=== PATIENT | male | born 1935 | race Caucasian/White ===

== ENCOUNTER 2021-01-15 21:10 | Inpatient (IN) | payer OTHER, SELFPAY ==
[~2021-01-15] VITALS: Ht 170.2 cm; Wt 76.9 kg
[2021-01-15 21:45] VITALS: BP_SYST 122
[2021-01-15] MEDS ORDERED: FURO-150 PO (22:08)
[2021-01-15] MEDS ORDERED: RIVA20TA PO (22:08)
[2021-01-15] MEDS ORDERED: TAMS-11 PO (22:08)
[2021-01-15] MEDS ORDERED: FINA5TAB3 PO (22:08)
[2021-01-15] MEDS ORDERED: AMIO200T66 PO (22:08)
[2021-01-15] MEDS ORDERED: PRO40 PO (22:08)
[2021-01-15] MEDS ORDERED: DILT240T11 PO (22:08)
[2021-01-15] MEDS ORDERED: LIP10 PO (22:08)
[2021-01-15] MEDS ORDERED: METO-290 PO (22:08)
[2021-01-16 00:06] LABS: ANION GAP 5 (5-15); CALCIUM 8.8 mg/dL (8.4-11.0); CHLORIDE 92 mmol/L (98-107); CREATININE 1.31 mg/dL (0.55-1.30); GLUCOSE 94 mg/dL (70-99); POTASSIUM 3.7 mmol/L (3.5-5.1); SODIUM SERUM 128 mmol/L (136-145); UREA NITROGEN, BLOOD 27 mg/dL (8-21)
[2021-01-16 00:12] LABS: ALANINE AMINOTRANSFERASE 32 U/L (12-78); ASPARTATE AMINOTRANSFERASE 39 U/L (10-37); TOTAL BILIRUBIN 0.6 mg/dL (0.0-1.0)
[2021-01-16 00:13] LABS: BASOPHILS # (AUTO) 0.1 K/uL (0.0-0.2); BASOPHILS % (AUTO) 1.2 % (0.0-2.0); EOSINOPHILS # (AUTO) 0.1 K/uL (0.0-0.4); EOSINOPHILS % (AUTO) 2.9 % (0.0-4.0); HEMATOCRIT 37.8 % (36-54); HEMOGLOBIN 13.2 g/dL (14.0-18.0); LYMPHOCYTES # (AUTO) 0.3 K/uL (1.0-5.5); LYMPHOCYTES % (AUTO) 7.5 % (20.5-51.5); MEAN CORPUSCULAR HEMOGLOBIN 36 pg (27-31); MEAN CORPUSCULAR HGB CONC 35 % (32-36); MEAN CORPUSCULAR VOLUME 102 fL (79.0-98.0); MONOCYTES # (AUTO) 0.4 K/uL (0.0-1.0); NEUTROPHILS # (AUTO) 3.5 K/uL (1.8-7.7); NEUTROPHILS % (AUTO) 79.4 % (40.0-70.0); PLATELET COUNT (AUTO) 139 K/uL (130-430); RED BLOOD CELL COUNT(AUTO) 3.69 MIL/uL (4.2-6.2); RED CELL DISTRIBUTION WIDTH 16.8 % (9.0-15.0); WHITE BLOOD COUNT (AUTO) 4.5 K/uL (4.8-10.8)
[2021-01-16 00:21] LABS: PROTHROMBIN TIME 10.2 SECS (9.5-12.5)
[2021-01-16] MEDS ORDERED: FUROSEMIDE 40 MG/4 ML VIAL IVP ONE (00:45)
[2021-01-16] MEDS ORDERED: MORPHINE 4 MG INJ. 4 MG/ML VIAL IVP PRN (02:00)
[2021-01-16] MEDS ORDERED: ACETAMINOPHEN 325 MG TABLET PO PRN ×2 (02:00→11:00)
[2021-01-16] MEDS ORDERED: HYDROcodone/ACETAMIN 5-325 MG TAB (NORCO/ VICODIN) PO PRN (02:00)
[2021-01-16 06:22] LABS: BASOPHILS % (AUTO) 0.7 % (0.0-2.0); EOSINOPHILS # (AUTO) 0.2 K/uL (0.0-0.4); EOSINOPHILS % (AUTO) 3.7 % (0.0-4.0); HEMATOCRIT 40.8 % (36-54); HEMOGLOBIN 13.7 g/dL (14.0-18.0); LYMPHOCYTES # (AUTO) 0.3 K/uL (1.0-5.5); LYMPHOCYTES % (AUTO) 5.9 % (20.5-51.5); MEAN CORPUSCULAR HEMOGLOBIN 35 pg (27-31); MEAN CORPUSCULAR HGB CONC 34 % (32-36); MEAN CORPUSCULAR VOLUME 104 fL (79.0-98.0); MONOCYTES # (AUTO) 0.3 K/uL (0.0-1.0); MONOCYTES % (AUTO) 7.3 % (1.7-9.3); NEUTROPHILS # (AUTO) 3.7 K/uL (1.8-7.7); NEUTROPHILS % (AUTO) 82.4 % (40.0-70.0); PLATELET COUNT (AUTO) 117 K/uL (130-430); RED BLOOD CELL COUNT(AUTO) 3.94 MIL/uL (4.2-6.2); RED CELL DISTRIBUTION WIDTH 16.1 % (9.0-15.0); WHITE BLOOD COUNT (AUTO) 4.5 K/uL (4.8-10.8)
[2021-01-16 06:36] LABS: ALANINE AMINOTRANSFERASE 36 U/L (12-78); ALBUMIN 2.9 g/dL (3.4-4.8); ANION GAP 3 (5-15); ASPARTATE AMINOTRANSFERASE 47 U/L (10-37); CALCIUM 8.5 mg/dL (8.4-11.0); CHLORIDE 93 mmol/L (98-107); CREATININE 1.39 mg/dL (0.55-1.30); GLUCOSE 81 mg/dL (70-99); POTASSIUM 3.9 mmol/L (3.5-5.1); SODIUM SERUM 130 mmol/L (136-145); TOTAL BILIRUBIN 0.8 mg/dL (0.0-1.0); UREA NITROGEN, BLOOD 25 mg/dL (8-21)
[2021-01-16] MEDS: DILTIAZEM HCL 240 MG CAP.SR.24H PO SCH (10:03)
[2021-01-16] MEDS: TAMSULOSIN HCL 0.4 MG CAP PO SCH (10:03)
[2021-01-16] MEDS: FUROSEMIDE 20 MG TABLET PO SCH (10:04)
[2021-01-16] MEDS: ATORVASTATIN 10 MG TABLET PO SCH (10:04)
[2021-01-16] MEDS: PANTOPRAZOLE SODIUM 40 MG TAB PO SCH (10:06)
[2021-01-16] MEDS: METOCLOPRAMIDE HCL 10 MG TABLET PO SCH ×3 (10:06→20:53)
[2021-01-16 13:51] LABS: SOURCE/TYPE ,BODY FLUID THORACENTESIS
[2021-01-16 13:52] LABS: BF APPEARANCE UNSPUN HAZY (CLEAR); BODY FLUID COLOR YELLOW (LT YELLOW); BODY FLUID SOURCE/ TYPE THORACENTESIS; BODY FLUID TOTAL VOLUME 2000 mL; EOSINOPHIL, BODY FLUID 0 %; LYMPHOCYTES, BODY FLUID 65 %; MONOCYTES,BODY FLUID 8 %; NEUTROPHIL, BODY FLUID 27 %; RBC, BODY FLUID 2539 /uL; WBC, BODY FLUID 39 /uL
[2021-01-16 20:38] VITALS: BP_SYST 111
[2021-01-16 20:57] LABS: BODY FLUID GLUCOSE 71 mg/dL; BODY FLUID TOTAL PROTEIN 3.7 g/dL
[2021-01-16] MEDS: FINASTERIDE 5 MG TABLET (PROSCAR) PO SCH (20:58)
[2021-01-17 00:35] VITALS: BP_SYST 119
[2021-01-17 06:50] LABS: BASOPHILS % (AUTO) 0.4 % (0.0-2.0); EOSINOPHILS # (AUTO) 0.1 K/uL (0.0-0.4); HEMATOCRIT 41.5 % (36-54); HEMOGLOBIN 14.1 g/dL (14.0-18.0); LYMPHOCYTES # (AUTO) 0.3 K/uL (1.0-5.5); LYMPHOCYTES % (AUTO) 7.1 % (20.5-51.5); MEAN CORPUSCULAR HEMOGLOBIN 35 pg (27-31); MEAN CORPUSCULAR HGB CONC 34 % (32-36); MEAN CORPUSCULAR VOLUME 103 fL (79.0-98.0); MONOCYTES # (AUTO) 0.4 K/uL (0.0-1.0); MONOCYTES % (AUTO) 8.3 % (1.7-9.3); NEUTROPHILS # (AUTO) 3.5 K/uL (1.8-7.7); NEUTROPHILS % (AUTO) 82.2 % (40.0-70.0); PLATELET COUNT (AUTO) 98 K/uL (130-430); RED BLOOD CELL COUNT(AUTO) 4.03 MIL/uL (4.2-6.2); RED CELL DISTRIBUTION WIDTH 16.6 % (9.0-15.0); WHITE BLOOD COUNT (AUTO) 4.3 K/uL (4.8-10.8)
[2021-01-17 07:22] LABS: ALANINE AMINOTRANSFERASE 33 U/L (12-78); ALBUMIN 2.7 g/dL (3.4-4.8); ANION GAP -1 (5-15); ASPARTATE AMINOTRANSFERASE 42 U/L (10-37); CALCIUM 8.7 mg/dL (8.4-11.0); CHLORIDE 96 mmol/L (98-107); CREATININE 1.24 mg/dL (0.55-1.30); GLUCOSE 74 mg/dL (70-99); POTASSIUM 3.9 mmol/L (3.5-5.1); SODIUM SERUM 130 mmol/L (136-145); TOTAL BILIRUBIN 0.7 mg/dL (0.0-1.0); UREA NITROGEN, BLOOD 21 mg/dL (8-21)
[2021-01-17 08:00] VITALS: BP_SYST 124
[2021-01-17] MEDS: ATORVASTATIN 10 MG TABLET PO SCH (09:13)
[2021-01-17] MEDS: PANTOPRAZOLE SODIUM 40 MG TAB PO SCH (09:13)
[2021-01-17] MEDS: DILTIAZEM HCL 240 MG CAP.SR.24H PO SCH (09:13)
[2021-01-17] MEDS: TAMSULOSIN HCL 0.4 MG CAP PO SCH (09:13)
[2021-01-17] MEDS: METOCLOPRAMIDE HCL 10 MG TABLET PO SCH ×3 (09:13→23:38)
[2021-01-17] MEDS: FUROSEMIDE 20 MG TABLET PO SCH (09:13)
[2021-01-17 12:00] VITALS: BP_SYST 122
[2021-01-17 16:00] VITALS: BP_SYST 128
[2021-01-17] MEDS: AMIODARONE HCL 200 MG TABLET PO SCH (17:29)
[2021-01-17 20:00] VITALS: BP_SYST 102
[2021-01-17] MEDS: FINASTERIDE 5 MG TABLET (PROSCAR) PO SCH (23:38)
[2021-01-18 08:00] VITALS: BP_SYST 93
[2021-01-18] MEDS: ATORVASTATIN 10 MG TABLET PO SCH (08:56)
[2021-01-18] MEDS: PANTOPRAZOLE SODIUM 40 MG TAB PO SCH (08:56)
[2021-01-18] MEDS: TAMSULOSIN HCL 0.4 MG CAP PO SCH (08:56)
[2021-01-18] MEDS: METOCLOPRAMIDE HCL 10 MG TABLET PO SCH ×3 (08:56→20:30)
[2021-01-18] MEDS: DILTIAZEM HCL 240 MG CAP.SR.24H PO SCH (08:56)
[2021-01-18] MEDS: FUROSEMIDE 20 MG TABLET PO SCH (09:00)
[2021-01-18 12:00] VITALS: BP_SYST 88
[2021-01-18] MEDS: PIPERACILLIN/TAZO 3.375/DEX-IS 50 ML IV SCH ×2 (13:50→18:29)
[2021-01-18] MEDS ORDERED: CABO20TA PO (14:00)
[2021-01-18 16:00] VITALS: BP_SYST 87
[2021-01-18 20:00] VITALS: BP_SYST 101
[2021-01-18] MEDS: FINASTERIDE 5 MG TABLET (PROSCAR) PO SCH (20:30)
[2021-01-19] MEDS: PIPERACILLIN/TAZO 3.375/DEX-IS 50 ML IV SCH ×5 (00:21→22:07)
[2021-01-19 01:18] VITALS: BP_SYST 92
[2021-01-19 07:52] VITALS: BP_SYST 94
[2021-01-19] MEDS: PANTOPRAZOLE SODIUM 40 MG TAB PO SCH (08:56)
[2021-01-19] MEDS: METOCLOPRAMIDE HCL 10 MG TABLET PO SCH ×3 (08:56→21:53)
[2021-01-19] MEDS: ATORVASTATIN 10 MG TABLET PO SCH (08:57)
[2021-01-19] MEDS: TAMSULOSIN HCL 0.4 MG CAP PO SCH (08:57)
[2021-01-19] MEDS: FUROSEMIDE 20 MG TABLET PO SCH (08:57)
[2021-01-19] MEDS: DILTIAZEM HCL 240 MG CAP.SR.24H PO SCH (08:57)
[2021-01-19] MEDS ORDERED: FUROSEMIDE 20 MG/2 ML VIAL IVP ONE (09:30)
[2021-01-19 12:00] VITALS: BP_SYST 90
[2021-01-19] MEDS ORDERED: CABOZANTINIB S MALATE 20 MG PO SCH (13:00)
[2021-01-19 16:00] VITALS: BP_SYST 106
[2021-01-19] MEDS: AMIODARONE HCL 200 MG TABLET PO SCH (17:19)
[2021-01-19 20:00] VITALS: BP_SYST 105
[2021-01-19] MEDS: FINASTERIDE 5 MG TABLET (PROSCAR) PO SCH (21:53)
[2021-01-19] MEDS: FUROSEMIDE 20 MG/2 ML VIAL IVP SCH (22:07)
[2021-01-20] VITALS: BP_SYST 102
[2021-01-20] MEDS: PIPERACILLIN/TAZO 3.375/DEX-IS 50 ML IV SCH ×4 (05:23→23:50)
[2021-01-20] MEDS: CABOZANTINIB 20 MG PO SCH (06:36)
[2021-01-20 07:45] VITALS: BP_SYST 96
[2021-01-20] MEDS: TAMSULOSIN HCL 0.4 MG CAP PO SCH (07:59)
[2021-01-20] MEDS: ATORVASTATIN 10 MG TABLET PO SCH (07:59)
[2021-01-20] MEDS: METOCLOPRAMIDE HCL 10 MG TABLET PO SCH ×3 (07:59→20:50)
[2021-01-20] MEDS: PANTOPRAZOLE SODIUM 40 MG TAB PO SCH (07:59)
[2021-01-20] MEDS: DILTIAZEM HCL 240 MG CAP.SR.24H PO SCH (08:08)
[2021-01-20] MEDS: FUROSEMIDE 20 MG/2 ML VIAL IVP SCH (08:09)
[2021-01-20 11:26] VITALS: BP_SYST 116
[2021-01-20 15:25] VITALS: BP_SYST 106
[2021-01-20 20:00] VITALS: BP_SYST 113
[2021-01-20] MEDS: FINASTERIDE 5 MG TABLET (PROSCAR) PO SCH (20:50)
[2021-01-21] VITALS: BP_SYST 102
[2021-01-21] MEDS: PIPERACILLIN/TAZO 3.375/DEX-IS 50 ML IV SCH ×2 (05:49→10:54)
[2021-01-21] MEDS: CABOZANTINIB 20 MG PO SCH (06:44)
[2021-01-21 08:00] VITALS: BP_SYST 95
[2021-01-21 08:12] LABS: BASOPHILS % (AUTO) 0.3 % (0.0-2.0); EOSINOPHILS # (AUTO) 0.1 K/uL (0.0-0.4); EOSINOPHILS % (AUTO) 1.8 % (0.0-4.0); HEMATOCRIT 39.6 % (36-54); HEMOGLOBIN 13.2 g/dL (14.0-18.0); LYMPHOCYTES # (AUTO) 0.2 K/uL (1.0-5.5); LYMPHOCYTES % (AUTO) 5.5 % (20.5-51.5); MEAN CORPUSCULAR HEMOGLOBIN 34 pg (27-31); MEAN CORPUSCULAR HGB CONC 33 % (32-36); MEAN CORPUSCULAR VOLUME 103 fL (79.0-98.0); MONOCYTES # (AUTO) 0.4 K/uL (0.0-1.0); MONOCYTES % (AUTO) 8.7 % (1.7-9.3); NEUTROPHILS # (AUTO) 3.7 K/uL (1.8-7.7); NEUTROPHILS % (AUTO) 83.7 % (40.0-70.0); PLATELET COUNT (AUTO) 84 K/uL (130-430); RED BLOOD CELL COUNT(AUTO) 3.86 MIL/uL (4.2-6.2); RED CELL DISTRIBUTION WIDTH 16.3 % (9.0-15.0); WHITE BLOOD COUNT (AUTO) 4.5 K/uL (4.8-10.8)
[2021-01-21 08:34] LABS: ANION GAP 2 (5-15); CALCIUM 8.2 mg/dL (8.4-11.0); CHLORIDE 92 mmol/L (98-107); CREATININE 1.09 mg/dL (0.55-1.30); GLUCOSE 84 mg/dL (70-99); POTASSIUM 4.1 mmol/L (3.5-5.1); SODIUM SERUM 127 mmol/L (136-145); UREA NITROGEN, BLOOD 14 mg/dL (8-21)
[2021-01-21] MEDS: METOCLOPRAMIDE HCL 10 MG TABLET PO SCH (08:43)
[2021-01-21] MEDS: ATORVASTATIN 10 MG TABLET PO SCH (08:43)
[2021-01-21] MEDS: PANTOPRAZOLE SODIUM 40 MG TAB PO SCH (08:45)
[2021-01-21] MEDS: TAMSULOSIN HCL 0.4 MG CAP PO SCH (08:45)
[2021-01-21] MEDS: DILTIAZEM HCL 240 MG CAP.SR.24H PO SCH (09:00)
[2021-01-21] MEDS ORDERED: FUROSEMIDE 20 MG TABLET PO ONE (11:00)
[2021-01-21 12:00] VITALS: BP_SYST 95
[2021-01-21 13:47] VITALS: BP_SYST 95
[2021-01-21 14:12] VITALS: BP_SYST 95
[2021-01-22] MEDS ORDERED: FUROSEMIDE 20 MG TABLET PO SCH (09:00)
== END 2021-01-21 14:32 | disposition hospice, home (50) | DRG 291 ==
LOC: SED 21:10 → STU 01-16 01:55
PROVIDERS: ADMIT Internal Medicine Hospice and Palliative Medicine; ATTEND Internal Medicine Hospice and Palliative Medicine
PROC: 0W993ZZ Drainage of Right Pleural Cavity, Percutaneous Approach (ICD-10-PCS; principal; 2021-01-16)
DX: I11.0 Hypertensive heart disease with heart failure (principal); J18.1 Lobar pneumonia, unspecified organism; N17.9 Acute kidney failure, unspecified; E87.1 Hypo-osmolality and hyponatremia; J91.8 Pleural effusion in other conditions classified elsewhere; I50.43 Acute on chronic combined systolic (congestive) and diastolic (congestive) heart failure; E78.5 Hyperlipidemia, unspecified; I48.0 Paroxysmal atrial fibrillation; I71.4 Abdominal aortic aneurysm, without rupture; Z20.822 Contact with and (suspected) exposure to COVID-19; D72.819 Decreased white blood cell count, unspecified; D69.6 Thrombocytopenia, unspecified; R33.9 Retention of urine, unspecified; Z85.528 Personal history of other malignant neoplasm of kidney; Z86.73 Personal history of transient ischemic attack (TIA), and cerebral infarction without residual deficits; Z92.21 Personal history of antineoplastic chemotherapy; Z79.899 Other long term (current) drug therapy; Z79.01 Long term (current) use of anticoagulants
CPT/HCPCS: 32555; 36415; 71045; 71250-TC; 76376; 80048; 80053; 82947; 83605; 83880; 84157; 84484; 85025; 85379; 85610-TC; 85730-TC; 86886; 86900; 86901; 87040-TC; 87081; 88108; 88305; 89051-TC; 89060-TC; 93005; 96365; 96372; 96374; 96375; 99285; G0378; J1940; J2270; J2543; J8597